=== PATIENT | male | born 1955 | race Caucasian/White ===

== ENCOUNTER → 2017-04-05 | Outpatient (CLI) | payer MEDICARE ==
[~2017-04-05] MED LIST: AMLO5TAB2 PO; ASPI-650 PO; CARV25TA12 PO; FURO20TA3 PO; LEVO50TA5 PO; LOSA100T6 PO; OMEP-110 PO
[2017-04-05 09:23] LABS: ASPARTATE AMINO TRANSFERASE 11 U/L (15-37); BLOOD UREA NITROGEN 11 mg/dL (7-18)
== END | disposition home or self-care (01) ==
LOC: STAR 08:05
PROVIDERS: ATTEND Thoracic Surgery (Cardiothoracic Vascular Surgery)
DX: Z01.818 Encounter for other preprocedural examination (principal); K82.8 Other specified diseases of gallbladder; I25.2 Old myocardial infarction; I10 Essential (primary) hypertension; E03.9 Hypothyroidism, unspecified
CPT/HCPCS: 36415; 80053; 93005

== ENCOUNTER 2017-04-20 08:22 | Day surgery (SDC) | payer MEDICARE ==
[~2017-04-20] VITALS: Ht 165.1 cm; Wt 129.5 kg
[~2017-04-20 08:22] MED LIST changes: +BUPIVACAINE/PF 0.5% ONE
[2017-04-20] MEDS ORDERED: LACTATED RINGERS 1,000 ML IV SCH ×2 (09:10→11:31)
[2017-04-20 09:11] VITALS: BP 142/103
[2017-04-20] MEDS ORDERED: LIDOCAINE 1%, 2ML SQ PRN (09:30)
[2017-04-20] MEDS ORDERED: FENTANYL PF 100 MCG/2ML ONE ×3 (09:34→11:45)
[2017-04-20] MEDS ORDERED: MIDAZOLAM 1 MG/ML, 2ML ONE (09:34)
[2017-04-20] MEDS ORDERED: PROPOFOL 10 MG/ML, 20ML ONE (09:36)
[2017-04-20] MEDS ORDERED: ROCURONIUM 10 MG/ML,10ML ONE (09:37)
[2017-04-20] MEDS ORDERED: CEFAZOLIN 1,000 MG ONE ×2 (09:38)
[2017-04-20] MEDS ORDERED: SODIUM CHLORIDE 0.9% PF 10ML ONE (09:38)
[2017-04-20] MEDS ORDERED: NEOSTIGMINE 1 MG/ML, 10ML ONE (09:39)
[2017-04-20] MEDS ORDERED: GLYCOPYRROLATE 0.2MG/1ML, 5ML ONE (09:39)
[2017-04-20] MEDS ORDERED: LABETALOL 5MG/ML 40ML VIAL ONE (10:51)
[2017-04-20] MEDS ORDERED: CEFOTETAN PMX 2GM/50ML 50 ML ONE (10:53)
[2017-04-20] MEDS ORDERED: LABETALOL 5MG/ML, 20ML IV PRN (11:00)
[2017-04-20] MEDS ORDERED: MEPERIDINE/PF 25MG/0.5ML IVPush PRN (11:00)
[2017-04-20] MEDS ORDERED: FENTANYL PF 100 MCG/2ML IV PRN (11:00)
[2017-04-20] MEDS ORDERED: OXYcodone 5 MG/5 ML ORAL.SOL UDC PO PRN (11:00)
[2017-04-20] MEDS ORDERED: PROMETHAZINE 25 MG/ML, 1ML IV PRN (11:00)
[2017-04-20] MEDS ORDERED: ACETAMINOPHEN 325 MG TABLET PO PRN (11:00)
[2017-04-20] MEDS ORDERED: ONDANSETRON 2MG/ML, 2ML IVPush PRN ×2 (11:00→12:00)
[2017-04-20] MEDS ORDERED: hydrALAzine 20 MG/ML, 1ML ONE (11:42)
[2017-04-20] MEDS: hydrALAzine 20 MG/ML, 1ML IV PRN ×2 (11:43→12:04)
[2017-04-20] MEDS ORDERED: ACETAMINOPHEN 650 MG/20.3 ML UDC ONE (11:44)
[2017-04-20] MEDS ORDERED: HYDROmorphone 2 MG/ML, 1ML ONE (11:45)
[2017-04-20] MEDS ORDERED: OXYcodone 5 MG/5 ML ORAL.SOL UDC ONE (11:45)
[2017-04-20] MEDS: HYDROmorphone 1 MG/ML, 1ML IV PRN ×2 (11:46→12:04)
[2017-04-20] MEDS ORDERED: morphine SULFATE 10 MG/ML, 1ML IVPush PRN (12:00)
[2017-04-20] MEDS ORDERED: HYDROcodone/APAP 5/325 TABLET PO PRN (12:00)
[2017-04-20] MEDS ORDERED: PROMETHAZINE 25 MG/ML, 1ML ONE (16:56)
[2017-04-20] MEDS ORDERED: PROMETHAZINE 25 MG/ML, 1ML IM ONE (17:30)
== END 2017-04-20 17:20 ==
LOC: OUT 08:22
PROVIDERS: ATTEND Thoracic Surgery (Cardiothoracic Vascular Surgery)
DX: K81.1 Chronic cholecystitis (principal); I10 Essential (primary) hypertension; E03.9 Hypothyroidism, unspecified; G47.33 Obstructive sleep apnea (adult) (pediatric); I25.2 Old myocardial infarction; Z98.890 Other specified postprocedural states; Z79.82 Long term (current) use of aspirin
CPT/HCPCS: 47562; 88304; J0360; J1170; J2250; J2405; J2550; J2704; J2710; J3010; J3490; S0074; J0690